=== PATIENT | male | born 1960 | race Caucasian/White ===

== ENCOUNTER 2019-11-09 00:28 | Outpatient (CLI) | payer OTHER, SELFPAY ==
[2019-11-09 18:39] LABS: SARS-CoV-2 RNA PCR Negative
== END 2019-11-09 00:29 | disposition home or self-care (01) ==
LOC: ANHCOVIDDT 00:28
PROVIDERS: PCP Family Medicine; Visit Provider Internal Medicine Gastroenterology
DX: Z01.818 Encounter for other preprocedural examination (principal); Z11.59 Encounter for screening for other viral diseases
CPT/HCPCS: 87635; C9803; U0003

== ENCOUNTER 2019-11-11 00:57 | Day surgery (SDC) | payer OTHER, SELFPAY ==
[2019-11-08 11:29] VITALS: BMI 27.6
[2019-11-11 07:46] VITALS: BP 146/94; PULSE 63; RESP 16; TEMP 36.4; O2SAT 100; BMI 27.5
--- NOTE | 2019-11-11 08:05 | PM.HPGS ---
History of Present Illness History of Present Illness Consent: Risks, benefits, and alternatives have been discussed and questions answered. Patient agrees to proceed with procedure. Chief complaint: Neoplasm Screening Narrative: Jasper Nguyen Jr. is a 59 year old W male Referred for screening colonoscopy. Patient is asymptomatic for family history of colon polyps or colon cancer. Last colonoscopy was approximately 9-10 years ago. Meds Home Medications and Allergies Home Medications Medication Instructions Recorded Confirmed Type amlodipine [Norvasc] 2.5 mg PO DAILY 11/08/19 11/08/19 History apremilast [Otezla] 30 mg PO BID 11/08/19 11/08/19 History atenolol 25 mg PO BID 11/08/19 11/08/19 History citalopram 20 mg PO DAILY 11/08/19 11/08/19 History Allergies Allergy/AdvReac Type Severity Reaction Status Date / Time No Known Allergies Allergy Verified 11/11/19 07:48 Vital Signs Vital Signs - 24 hr 11/11/19 07:46 Temperature 36.4 C Pulse Rate 63 Respiratory Rate 16 Blood Pressure 146/94 H Pulse Oximetry 100 Exam Const: Orientation/consciousness: patient oriented x3 Resp: Auscultation: clear to auscultation bilaterally Cardio: Rate: regular rate Rhythm: regular rhythm Heart sounds: no murmurs GI: GI Palp: Yes Soft to palpation, No Tenderness to palpation present (GI), Yes No hepatosplenomegaly present and No Palpable mass present Auscultation: normal bowel sounds Neuro: General: patient oriented x3 and no focal motor deficits Extrem: General: no pedal edema Assessment and Plan Additional Plan Screening colonoscopy in average risk patient
--- NOTE | 2019-11-11 08:06 | WPDANESEPPF ---
Anes - Initial Pre Proc Eval Procedure: Operation Date: 11/11/19 08:30 Proposed Procedures p Screening Colonoscopy - Armand Balbuena MD Date/Time: 11/11/19 08:06 Surgeon: Armand Balbuena MD Pre Op Diagnosis: Neoplasm Screening Patient Data Age: 59 Gender: M Height: 5 ft 9 in Weight: 84.5 kg Last Vital Signs Temp 97.6 F 11/11/19 07:46 Pulse 63 11/11/19 07:46 Resp 16 11/11/19 07:46 BP 146/94 H 11/11/19 07:46 Pulse Ox 100 11/11/19 07:46 Allergies Allergy/AdvReac Type Severity Reaction Status Date / Time No Known Allergies Allergy Verified 11/11/19 07:48 Home Medications Medication Instructions Recorded Confirmed Type amlodipine [Norvasc] 2.5 mg PO DAILY 11/08/19 11/08/19 History apremilast [Otezla] 30 mg PO BID 11/08/19 11/08/19 History atenolol 25 mg PO BID 11/08/19 11/08/19 History citalopram 20 mg PO DAILY 11/08/19 11/08/19 History Patient hx anesthesia problems: none Family hx anesthesia problems: none [facility] Past Medical History Medical History (Updated 11/11/19 @ 08:06 by Miguel Ángel Tavares MD) Diabetes Hyperlipidemia Hypertension SALAS (obstructive sleep apnea) Anes - Eval Final PreProcedure Day of Procedure 11/11/19 08:06 Patient weight: overweight Heart: regular rate and rhythm Lungs: clear to auscultation Airway: Mallampati scale class II Neurological: alert and oriented Last oral intake: >/= 8 hours ASA classification: III Emergent: no Anesthetic plan: proceed Anesthesia type and monitoring: general GIVS and standard monitoring Informed Consent: The patient's anesthetic plan and its attendant risks and benefits were discussed with the patient/family/POA. Questions were solicited and answers provided to the satisfaction of the patient/family/POA.
[2019-11-11] MEDS: LACTATED RINGERS 1,000 ML 150 ML IV CONT (08:07)
[2019-11-11 08:34] LABS: Glucose Point of Care 100 (65-105)
[2019-11-11] MEDS: SIMETHICONE ORAL SUSPENSION 20 MG/0.3 ML 30 ML BOTTLE 0.6 ML IRRIGATION (09:09)
[2019-11-11 09:22] VITALS: BP 131/84; PULSE 52; RESP 19; O2SAT 97
[2019-11-11 09:32] VITALS: BP 130/87; PULSE 68; RESP 21; O2SAT 99
[2019-11-11 09:42] VITALS: BP 137/93; PULSE 58; RESP 20; O2SAT 100
== END 2019-11-11 09:52 | disposition home or self-care (01) ==
PROVIDERS: PCP Family Medicine; Visit Provider Internal Medicine Gastroenterology
PROC: 0DJD8ZZ Inspection of Lower Intestinal Tract, Via Natural or Artificial Opening Endoscopic (ICD-10-PCS; CPT 45378; principal; 2019-11-11 08:30)
DX: Z12.11 Encounter for screening for malignant neoplasm of colon (principal); D12.5 Benign neoplasm of sigmoid colon; D12.8 Benign neoplasm of rectum; K64.8 Other hemorrhoids; K57.30 Diverticulosis of large intestine without perforation or abscess without bleeding; E11.9 Type 2 diabetes mellitus without complications; I10 Essential (primary) hypertension; E78.5 Hyperlipidemia, unspecified; G47.33 Obstructive sleep apnea (adult) (pediatric)
CPT/HCPCS: 45385; 88305; J2001; J2704; J7120

== ENCOUNTER 2021-01-30 08:37 | Outpatient (CLI) | payer OTHER, SELFPAY ==
--- NOTE | ~2021-01-30 | MR_ITS ---
EXAMINATION: MR brain/brain stem wo con EXAM DATE: 01/30/2021 09:49 INDICATION: R42 - Dizziness and giddiness. TECHNIQUE: Magnetic resonance imaging (MRI) of the brain/brain stem obtained without contrast. Derick al T1, axial diffusion, gradient echo (T2*), T1, T2, FLAIR sequences obtained. There is no prior st udy for comparison. FINDINGS: There are no areas of restricted diffusion to suggest acute infarction. There is no acute hemorrhage seen on the T2*, a hemosiderin sensitive sequence. No intraparenchymal brain mass. The ve ntricles are normal in size. There are no extra-axial collections. Flow voids are seen in the cereb ral arteries on the T2-weighted sequences consistent with their expected patency. The orbits are unr emarkable. Soft tissue is unremarkable. IMPRESSION: 1. Unremarkable brain MRI examination. Reviewed, dictated and finalized at location A.
== END 2021-01-30 08:38 | disposition home or self-care (01) ==
PROVIDERS: PCP Family Medicine; Visit Provider Family Medicine
DX: R42 Dizziness and giddiness (principal)
CPT/HCPCS: 70551

== ENCOUNTER 2022-09-20 09:40 | Outpatient (CLI) | payer OTHER, SELFPAY ==
--- NOTE | 2022-09-20 | ECG_ITS ---
Measurements Intervals Jamul Rate: 55 P: 48 OR: 175 QRS: -2 QRSD: 84 T: -3 QT: 407 QTc: 390 Interpretive Statements SINUS BRADYCARDIA BORDERLINE ECG NO PREVIOUS ECG AVAILABLE FOR COMPARISON Electronically Signed On 09-20-2022 16:49:27 CDT by Sam Cantor M.D.
[2022-09-20 11:07] LABS: Anion Gap 7 mmol/L (8-16); Blood Urea Nitrogen 12 mg/dL (9-20); Calcium 9.4 mg/dL (8.4-10.2); Carbon Dioxide 30 mmol/L (22-30); Chloride 97 mmol/L (98-107); Estimated Glomerular Filt Rate > 60; Glucose 100 mg/dL (65-110); Potassium 4.5 mmol/L (3.4-5.0); Sodium 134 mmol/L (137-145)
== END 2022-09-20 09:41 | disposition home or self-care (01) ==
LOC: ANHCARD 09:43
PROVIDERS: PCP Family Medicine; Visit Provider Orthopaedic Surgery
DX: Z01.818 Encounter for other preprocedural examination (principal); R00.1 Bradycardia, unspecified
CPT/HCPCS: 36415; 80048; 93005

== ENCOUNTER 2024-02-01 17:07 | Emergency (ER) | payer OTHER, SELFPAY ==
[2024-02-01 17:11] VITALS: BP 164/94; PULSE 63; RESP 18; TEMP 36.8; O2SAT 100
== END 2024-02-01 18:45 | disposition left against medical advice (07) ==
PROVIDERS: PCP Family Medicine
DX: R10.31 Right lower quadrant pain (principal)
CPT/HCPCS: 99199

== ENCOUNTER 2024-02-20 14:11 | Outpatient (CLI) | payer OTHER, SELFPAY ==
--- NOTE | ~2024-02-20 | US_ITS ---
Right groin soft tissue ULTRASOUND Ordering provider: Arnaldo Christensen NP History: . M79.18 - Myalgia, other site . Comparison: None. FINDINGS/impression: 2.3 cm possible breech of in the right inguinal area is noted with Valsalva technique suggestive of h ernia. Clinical correlation advised. Reviewed, dictated and finalized at location A.
--- NOTE | ~2024-02-20 | US_ITS ---
EXAMINATION: US abdomen limited DATE: 02/20/2024 14:56 INDICATION: Umbilical hernia TECHNIQUE: Multiple grayscale and Doppler ultrasound images of the region of concern along the anteri or abdominal wall were obtained. COMPARISON: None FINDINGS/IMPRESSION: Small fat-containing supraumbilical ventral hernia with hernia sac measuring approximately 2.2 x 1.9 x 0.9 cm and extending through a 4 mm os. No evident herniated bowel. Reviewed, dictated and finalized at location B.
== END 2024-02-20 14:12 | disposition home or self-care (01) ==
PROVIDERS: PCP Family Medicine
DX: M79.18 Myalgia, other site (principal); R19.00 Intra-abdominal and pelvic swelling, mass and lump, unspecified site; K43.9 Ventral hernia without obstruction or gangrene
CPT/HCPCS: 76705; 76882

== ENCOUNTER 2025-01-07 00:46 | Day surgery (SDC) | payer OTHER, SELFPAY ==
[2024-12-28 09:41] VITALS: BMI 25.9
--- OUTSIDE RECORDS SUMMARY | 2025-01-07 00:49 | XMS_ITS | Referral Summary ---
Author Organization [facility] Address [address] [place] [address] Care Team Providers Care Auto Top Mechanic Name Role Phone Tres Murphy MD Primary Care Provider [phone] Allergies No known active allergies Medications citalopram (CeleXA) 20 mg tablet Take 0.5 tablets (10 mg total) by mouth daily Active amLODIPine (NORVASC) 2.5 mg tablet Take 1 tablet (2.5 mg total) by mouth daily Active apremilast 30 mg tablet Take 1 tablet (30 mg total) by mouth 2 (two) times a day Active atenoloL (TENORMIN) 25 mg tablet Take 1 tablet (25 mg total) by mouth 2 (two) times a day Active oxyCODONE-aceta minophen (PERCOCET) 5-325 mg per tabletIndicatio ns:Pain Take 1-2 tablets by mouth every 8 (eight) hours as needed for pain 20 tablet Active Additional Information Patient not taking.Reported on 04/21/2024 Active Problems Problem Noted Date Diagnosed Date Epigastric hernia 03/03/2024 Inguinal hernia without obstruction or gangrene 03/03/2024 Social History Tobacco Use Types Packs/Day Years Used Date Smoking Tobacco: Never Smokeless Tobacco: Never Tobacco Cessation:Counseling Given: Not Answered AUDIT-C Answer Date Recorded Q1: How often do you have a drink containing alcohol? 4 or more times a week 03/29/2024 Q2: How many drinks containi ng alcohol do you have on a typical day when you are drinking? 1 or 2 Frequency of Binge Drinking Not on file 03/10 Personal Safety Answer Date Recorded Have you ever been in or are you currently in a harmful physical or emotional relationship or is someone making you feel afraid or unsafe? Denies 04/02/2024 Sex and Gender Information Value Date Recorded Sex Assigned at Not on file Legal Sex Male 6:01 PM MACHINIST BENCH Gender Identity Not on file Sexual Orientation Not on file Last Filed Vital Signs Vital Sign Reading Time Taken Comments Blood Pressure 160/85 04/21/2024 9:57 AM MACHINIST BENCH Pulse 53 04/21/2024 9:57 AM MACHINIST BENCH Temperature 36.2 C (97.1 F) 04/21/2024 9:57 AM MACHINIST BENCH Respiratory Rate 18 04/02/2024 10:10 AM CDT Oxygen Saturation 98% 04/21/2024 9:57 AM MACHINIST BENCH Inhaled Oxygen Concentration - - Weight 82.2 kg (181 lb 4.8 oz) 04/21/2024 9:57 A M MACHINIST BENCH Height 176.5 cm (5' 9.5) 04/21/2024 9:57 AM MACHINIST BENCH Body Mass Index 26.39 04/21/2024 9:57 AM MACHINIST BENCH Plan of Treatment Not on file Medical Devices Implanted Type Area Surface Supervisor Device Identifier Shelf Expiration Date Model / Serial / Lot Med[employer]onic [employer] Progrip 15x9cm Self Residential Monitor Rectangle Mesh Surgical Polyester Hernia [id number] - [id number] Implanted:Qty: 1 on 04/02/2024 by Samuel Dejesus MD at [facility] Right: Inguinal [employer] 10/06/2028 [id number] / / [id number] Insurance [facility] HMO/PPO Address: [place] [address] Care Teams Auto Top Mechanic Relationship Specialty Start Date End Date Tres Murphy MD [address] [address] PCP - General Family Medicine 02/25/24
--- OUTSIDE RECORDS SUMMARY | 2025-01-07 00:49 | XMS_ITS | Clinical Summary ---
Author Organization [facility] Address [address] [place] [address] Phone Care Team Providers Care Vocational Horticulture Instructor Name Role Phone Aneesh Alonzo MD Primary Care Provider Allergies No known active allergies Medications atenolol (TENORMIN) 50 mg Oral tablet Take 50 mg by mouth daily at bedtime. 01/03/2011 Active citalopram (CELEXA) 20 mg Oral tablet Take 10 mg by mouth daily at bedtime. Active HYDROcodone-acet aminophen (VICODIN) 5-500 mg Oral tablet Take 1-2 Tabs by mouth every 6 hours as needed for Pain. 30 Tab 2 01/17/2011 Active prochlorperazine maleate (COMPAZINE) 10 mg Oral tablet Take 1 Tab by mouth every 6 hours as needed for Nausea. 5 Tab 2 01/17/2011 Active Active Problems Problem Noted Date Diagnosed Date Gallbladder disease 01/17/2011 Social History Tobacco Use Types Packs/Day Years Used Date Smoking Tobacco: Never Smokeless Tobacco: Never Alcohol Use Standard Drinks/Week Comments Yes 11.7 (1 standard drink = 0.6 oz pure alcohol) Sex and Gender Information Value Date Recorded Sex Assigned at Not on file Legal Sex Male 6:03 AM RODEO RIDER Gender Identity Not on file Sexual Orientation Not on file Last Filed Vital Signs Vital Sign Reading Time Taken Comments Blood Pressure 148/96 01/17/2011 2:00 PM CDT Pulse 76 01/17/2011 2:00 PM CDT Temperature 36.3 C (97.4 F) 01/17/2011 2:00 PM CDT Respiratory Rate 18 01/17/2011 2:00 PM CDT Oxygen Saturation 98% 01/17/2011 2:00 PM CDT Inhaled Oxygen Concentration - - Weight 77.1 kg (170 lb) 01/17/2011 8:41 AM CDT Height 177.8 cm (5' 10) 01/03/2011 3:05 PM CDT Body Mass Index 24.39 01/03/2011 3:05 PM CDT Plan of Treatment Health Maintenance Due Date Last Done Comments DTAP/TDAP/TD VACCINES (1 - Tdap) 1980 COLORECTAL SCREENING 2006 Colorectal Cancer Screening 2006 FIT-DNA Q 3 years 2006 FIT/FOBT Q 1 year 2006 Flex Sig/CT Colonography Q 5 years 2006 ZOSTER VACCINE (1 of 2) 08/10/2011 INFLUENZA VACCINE (#1) 2025 RSV VACCINE (60+ or ) (1 - 1-dose 75+ series) 2036 Insurance Advance Directives For more information, please contact: [phone] * Full Code (Latest Code Status on File) Date Activated Date Inactivated Comments 01/17/2011 9:57 AM 01/17/2011 8:45 PM * Full Code Date Activated Date Inactivated Comments 01/17/2011 8:40 AM 01/17/2011 9:57 AM Care Teams Vocational Horticulture Instructor Relationship Specialty Start Date End Date Aneesh Alonzo MD [address] [place] [phone] PCP - General Internal Medicine 12/25/10
--- OUTSIDE RECORDS SUMMARY | 2025-01-07 00:49 | XMS_ITS | Clinical Summary ---
Author Organization [facility] Medical Office Building [facility] Address [address] [place] [address] Care Team Providers Care Veterinary Livestock Inspector Name Role Phone Tres Murphy MD Primary Care Provider [phone] Allergies No known active allergies Medications citalopram [...] Inguinal hernia without obstruction or gangrene 03/03/2024 Surgical History Surgery Date Site/Laterality Comments KNEE SURGERY Bilateral meniscus repair CHOLECYSTECTOMY HAND SURGERY Right HERNIA REPAIR 04/02/2024 R Inguinal and ventral Medical History Medical History Date Comments Hypertension Anxiety Sleep apnea Family History Medical History Relation Name Comments Hypertension Father Dementia Mother Relation Name Status Comments Father Mother Social History Tobacco Use Types Packs/Day Years [...] on file Legal Sex Male 6:01 PM CERAMICS INSTRUCTOR Gender Identity Not on file Sexual Orientation Not on file Obstetrics History Last Filed Vital Signs Vital Sign Reading Time Taken Comments Blood Pressure 160/85 04/21/2024 9:57 AM CERAMICS INSTRUCTOR Pulse 53 04/21/2024 9:57 AM CERAMICS INSTRUCTOR Temperature 36.2 C (97.1 F) 04/21/2024 9:57 AM CERAMICS INSTRUCTOR Respiratory Rate 18 04/02/2024 10:10 AM CDT Oxygen Saturation 98% 04/21/2024 9:57 AM CERAMICS INSTRUCTOR Inhaled Oxygen Concentration - - Weight 82.2 kg (181 lb 4.8 oz) 04/21/2024 9:57 A M CERAMICS INSTRUCTOR Height 176.5 cm (5' 9.5) 04/21/2024 9:57 AM CERAMICS INSTRUCTOR Body Mass Index 26.39 04/21/2024 9:57 AM CERAMICS INSTRUCTOR Plan of Treatment Health Maintenance Due Date Last Done Comments Colon Cancer Screening-Colonoscopy 1961 Depression Screening 1961 Hepatitis C Screening 1960 Prostate Cancer Screening-PSA 1961 DTaP/Tdap/Td Vaccine (1 - Tdap) 1972 Hepatitis B Screening 08/10/1979 Regular Well Visit/Exam 18-64 08/10/1979 Zoster Vaccine (1 of 2) 08/10/2011 Influenza Vaccine (#1) 2025 Pneumococcal vaccine <65 Aged Out No longer eligible based on patient's age to complete this topic Medical Devices Implanted Type Area Moisture Conditioner Operator Device Identifier Shelf Expiration Date Model / Serial / Lot Medtronic Inc Progrip 15x9cm Self Robot Programmer Rectangle Mesh Surgical Polyester Hernia [id number] - [id number] Implanted:Qty: 1 on 04/02/2024 by Samuel Dejesus MD at [facility] Right: Inguinal [employer] 10/06/2028 [id number] / / [id number] Insurance [facility]/PPO Address: [place] [address] Care Teams Veterinary Livestock Inspector Relationship Specialty Start Date End Date Tres Murphy MD [address] [place] [address] PCP - General Family Medicine 02/25/24
[2025-01-07 08:08] VITALS: BP 171/97; PULSE 57; RESP 18; TEMP 36.6; O2SAT 100
[2025-01-07] MEDS: LACTATED RINGERS 1,000 ML 150 ML IV CONT (08:18)
--- NOTE | 2025-01-07 08:43 | WPDANESEPPF ---
Anes - Initial Pre Proc Eval Procedure: Operation Date: 01/07/25 09:00 Proposed Procedures p Screening Colonoscopy - Mauricio Castorena MD Date/Time: 01/07/25 08:43 Surgeon: Mauricio Castorena MD Pre Op Diagnosis: neoplasm screening Patient Data Age: 64 Gender: M Height: 1.75 m Weight: 82.2 kg Last Vital Signs Temp 36.6 C 01/07/25 08:08 Pulse 57 L 01/07/25 08:08 Resp 18 01/07/25 08:08 BP 171/97 H 01/07/25 08:08 Pulse Ox 100 01/07/25 08:08 O2 Del Method Room Air 01/07/25 08:08 Allergies Allergy/AdvReac Type Severity Reaction Status Date / Time No Known Allergies Allergy Verified 01/07/25 08:07 Home Medications ?Medication ?Instructions ?Recorded ?Confirmed ?Type apremilast 30 mg tablet (Otezla) 30 mg PO BID 11/08/19 01/07/25 History amlodipine 2.5 mg tablet (Norvasc) 2.5 mg PO DAILY #90 tabs 09/01/24 01/07/25 Rx atenolol 25 mg tablet 50 mg (2 x 25 mg) PO DAILY #180 10/29/24 01/07/25 Rx tabs citalopram 20 mg tablet 20 mg PO DAILY #90 tabs 12/08/24 01/07/25 Rx Patient hx anesthesia problems: none Family hx anesthesia problems: none Results Review: All pre-operative results and documents have been reviewed as part of the pre-operative evaluation. [facility] Past Medical History Medical History Elevated white blood cell count Depression Patient no longer with issues BMI 27.0-27.9,adult Elevated glucose Vertigo Anxiety disorder, unspecified BMI 28.0-28.9,adult Cholecystectomy planned Mononucleosis SALAS (obstructive sleep apnea) Hypertension Hyperlipidemia Surgical History Surgical History History of hernia repair S/P medial meniscal repair (~1994) Family History Family History Father , 75 Hypertension Cerebrovascular accident Mother No problems noted. Sibling No problems noted. Social History Social History Smoking status: Never smoker Second hand tobacco smoke exposure: No Alcohol intake: current Drinks per week: 12 Substance use: never Substance use type: does not use Do You Feel Safe in your Home?: Yes Lack of Transportation: No Lack of Food: Never True Current Housing: I Have Housing Concerned About Future Housing: No Difficulty Paying Gas/Electric Bills: No Difficulty Paying for Meds: No Currently Unemployed: No Education: Bachelor's Degree Difficulty w/ Childcare or Family Care: No Living arrangements: with family Additional living arrangements comments: with sp Occupation/Education: occupation 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 Informed Consent: The patient's anesthetic plan and its attendant risks and benefits were discussed with the patient/family/POA. Questions were solicited and answers provided to the satisfaction of the patient/family/POA.
--- NOTE | 2025-01-07 09:01 | P.HP_ITS ---
History of Present Illness History of Present Illness Consent: Risks, benefits, and alternatives have been discussed and questions answered. Patient agrees to proceed with procedure. Chief complaint: neoplasm screening Narrative: Jasper Nguyen Jr. is a 64 year old male with colon polyp in 2019 Review of Systems Review of Systems: All systems reviewed & are unremarkable except as noted in HPI and below PMFSH Past Medical History Medical History (Updated 01/07/25 @ 09:01 by Mauricio Castorena MD) Colon polyp Elevated white blood cell count Depression Patient no longer with issues BMI 27.0-27.9,adult Elevated glucose Vertigo Anxiety disorder, unspecified BMI 28.0-28.9,adult Cholecystectomy planned Mononucleosis SALAS (obstructive sleep apnea) Hypertension Hyperlipidemia Surgical History Surgical History History of hernia repair S/P medial meniscal repair (~1994) Family History Family History Father , 75 Hypertension Cerebrovascular accident Mother No problems noted. Sibling No problems noted. Social History Social History Smoking status: Never smoker Second hand tobacco smoke exposure: No Alcohol intake: current Drinks per week: 12 Substance use: never Substance use type: does not use Do You Feel Safe in your Home?: Yes Lack of Transportation: No Lack of Food: Never True Current Housing: I Have Housing Concerned About Future Housing: No Difficulty Paying Gas/Electric Bills: No Difficulty Paying for Meds: No Currently Unemployed: No Education: Bachelor's Degree Difficulty w/ Childcare or Family Care: No Living arrangements: with family Additional living arrangements comments: with sp Occupation/Education: occupation 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 Gender identity (if verbalized by the patient): Male Meds Home Medications and Allergies Home Medications ?Medication ?Instructions ?Recorded ?Confirmed ?Type apremilast 30 mg tablet (Otezla) 30 mg PO BID 11/08/19 01/07/25 History amlodipine 2.5 mg tablet (Norvasc) 2.5 mg PO DAILY #90 tabs 09/01/24 01/07/25 Rx atenolol 25 mg tablet 50 mg (2 x 25 mg) PO DAILY #180 10/29/24 01/07/25 Rx tabs citalopram 20 mg tablet 20 mg PO DAILY #90 tabs 12/08/24 01/07/25 Rx Allergies Allergy/AdvReac Type Severity Reaction Status Date / Time No Known Allergies Allergy Verified 01/07/25 08:07 Vital Signs Vital Signs - 24 hr 01/07/25 08:08 Temperature 97.8 F Pulse Rate 57 L Respiratory Rate 18 Blood Pressure 171/97 H Pulse Oximetry 100 Oxygen Delivery Room Air Exam Const: General: comfortable and no acute distress HENMT: Face/Nose/Sinus: Normal nares present Eyes: General: appearance normal, both eyes and all related structures Neck: Neck: no JVD Resp: Auscultation: clear to auscultation bilaterally Cardio: Rate: regular rate Rhythm: regular rhythm GI: Inspection: non-distended GI Palp: Yes Soft to palpation Skin: General skin exam: normal color Neuro: General: gait normal Speech: normal speech Extrem: General: normal to inspection Psych: Mental Status: mental status grossly normal Assessment and Plan Assessment and plan (1) Colon polyp: Code(s): K63.5 - Polyp of colon Status: Acute Assessment and Plan: colonoscopy
--- NOTE | 2025-01-07 09:16 | S_PTH ---
PATIENT: Jasper Nguyen Jr. LOC: [facility]#:[id number] AGE/SX: 64/M ROOM: RE01/07/[address]: Mauricio Castorena MD : 1960 BED: DIS: 01/07/2025 SPEC #: [id number] RECD: 01/07/25 09:52 STATUS: DARSHANA LUNA #: [id number] REDD: 01/07/25 09:[address]: Mauricio Castorena DEPT: [facility] Surgical RECD BY: Marcela Gan ENTERED: 01/07/25 09:52 SP TYPE: Surgical OTHR DR: Tres Murphy MD Tissues: A - Colon Polypectomy Procedures: Hematoxylin and Eosin Stain Gross and Microscopic Level 4
[2025-01-07 09:17] VITALS: BP 112/77; PULSE 56; RESP 13; O2SAT 98
[2025-01-07 09:27] VITALS: BP 124/75; PULSE 50; RESP 20; O2SAT 98
[2025-01-07 09:35] VITALS: BP 140/78; PULSE 50; RESP 18; O2SAT 100
== END 2025-01-07 09:44 | disposition home or self-care (01) ==
PROVIDERS: PCP Family Medicine; Referring Provider Family Medicine; Visit Provider Internal Medicine Gastroenterology
PROC: 0DJD8ZZ Inspection of Lower Intestinal Tract, Via Natural or Artificial Opening Endoscopic (ICD-10-PCS; CPT 45378; principal; 2025-01-07 09:00)
DX: Z12.11 Encounter for screening for malignant neoplasm of colon (principal); D12.3 Benign neoplasm of transverse colon; K57.30 Diverticulosis of large intestine without perforation or abscess without bleeding; K64.8 Other hemorrhoids
CPT/HCPCS: 45385; 88305; J2704; J7120